=== PATIENT | female | born 1950 | race Caucasian/White ===

== ENCOUNTER → 2020-10-11 | Emergency (ER) | payer MEDICARE, BC ==
[~2020-10-11] VITALS: Ht 162.6 cm; Wt 105.0 kg
[~2020-10-11] MED LIST: NITROGLYCERIN OINT 1 GM PACKET. TP ONE; oxyCODONE/APAP 5/325 1 TAB TABLET PO ONE
--- NOTE | 2020-10-11 19:17 | PHYS DOC ---
Past History Past Medical History: A-Fib, CAD, Diabetes, High Cholesterol, Hypertension, Other Additional Past Medical Histor: 15% KIDNEY FUNCTION (VICTOR M BARBOSA APRN) Past Medical History: Arthritis, CAD, Diabetes, Hypertension, Renal Disease (MANDEEP WREN MD) Past Surgical History: Cholecystectomy, Hysterectomy, Tonsillectomy, Other Additional Past Surgical Histo: HEART CATH, HEART ABLATION, MASECTOMY, FOOT SURGERY (VICTOR M BARBOSA APRN) Past Surgical History: Angioplasty, Other (MANDEEP WREN MD) Alcohol Use: None (VICTOR M BARBOSA APRN) General Adult EDM: Chief Complaint: MECHANICAL FALL HPI: HPI: Patient is a 70-year-old female who presents after a fall off of a step stool yesterday. Patient states that she was hanging a curtain and the next thing she knew she had woke up on the ground. Patient states "I lost about an hour and a half of time ". "I felt dizzy all day and my vision feels not as sharp as normal". "I have had a headache ever since I fell and it is worse when I bend over or get up quickly". Patient is reporting headache, bilateral shoulder pain, neck pain. Patient denies nausea/vomiting. Patient has a history of diabetes, hypertension, TIA. (VICTOR M BARBOSA APRN) Review of Systems: Review of Systems: Constitutional: Denies fever or chills Eyes: Reports vision feels blurry HENT: Denies nasal congestion or sore throat Respiratory: Denies cough or shortness of breath Cardiovascular: Denies chest pain or edema GI: Denies abdominal pain, nausea, vomiting, bloody stools or diarrhea : Denies dysuria Musculoskeletal: Reports neck pain, bilateral shoulder pain Integument: Denies rash Neurologic: Reports headache, denies focal weakness or sensory changes Endocrine: Denies polyuria or polydipsia Lymphatic: Denies swollen glands Psychiatric: Denies depression or anxiety (VICTOR M BARBOSA APRN) Allergies: Allergies: Allergies Coded Allergies Type Severity Reaction Last Updated Verified Penicillins Allergy Unknown Swelling 10/11/20 Yes (VICTOR M BARBOSA APRN) Physical Exam: PE: Constitutional: Well developed, well nourished, no acute distress, non-toxic appearance. [] HENT: Normocephalic, atraumatic, bilateral external ears normal, oropharynx moist, no oral exudates, nose normal. [] Eyes: PERRLA, EOMI, conjunctiva normal, no discharge. [] Neck: Normal range of motion, tenderness Cardiovascular:Heart rate regular rhythm, no murmur [] Lungs & Thorax: Bilateral breath sounds clear to auscultation [] Abdomen: Bowel sounds normal, soft, no tenderness, no masses, no pulsatile masses. [] Skin: Warm, dry, no erythema, no rash. [] Back: No tenderness, no CVA tenderness. [] Extremities: Bilateral shoulder tenderness, ROM intact, no edema. [] Neurologic: Alert and oriented X 3, normal motor function, normal sensory function, no focal deficits noted. [] Psychologic: Affect normal, judgement normal, mood normal. [] (VICTOR M BARBOSA APRN) Current Patient Data: Vital Signs: Vital Signs Date Time Temp Pulse Resp B/P (MAP) Pulse Ox O2 Delivery O2 Flow Rate FiO2 10/11/20 18:46 98.1 71 18 211/104 (139) 98 Room Air (VICTOR M BARBOSA APRN) EKG: EKG: Sinus rhythm. Heart rate 63 bpm. QRS 118. QTc 412 [] (VICTOR M BARBOSA APRN) EKG: My interpretation EKG shows a sinus rhythm at 63 bpm. There is prolonged HI interval at 230 ms. Does have a fascicular block. There is some anterior septal changes. But no obvious changes of a acute STEMI with contralateral changes. Would consider this an abnormal EKG My interpretation EKG #2 at 2214 hrs. shows no acute morphology changes from prior EKG at 1912 hrs. Shows a sinus rhythm at 60 bpm. Slightly prolonged HI interval rate of 234 ms. Does have a left and fascicular block. Anterior septal changes. But no obvious findings of acute STEMI with contralateral changes. (MANDEEP WREN MD) Radiology/Procedures: Radiology/Procedures: []Exam: CT head and cervical spine without contrast INDICATION: Fall TECHNIQUE: Sequential axial images through the head and cervical spine were obtained without the administration of IV contrast. Exposure: One or more of the following in the visualized dose reduction techniques were utilized for this examination: 1. Automated exposure control 2. Adjustment of the MA and/or KV according to patient size 3. Use of iterative of reconstructive technique Comparisons: None FINDINGS: Head: No focal parenchymal lesion or hemorrhage is identified. There is no midline shift or sulcal effacement. No acute vascular territory infarction is identified. Gleason-white distinction is preserved. The ventricular system is within normal limits without compression hyd rocephalus. The basal cisterns are well maintained. The visualized portions of the paranasal sinuses and mastoid air cells are well- pneumatized. No acute fractures. Cervical spine: Vertebral body heights and alignment are well-maintained. Fracture to the cervical spine is not identified. Multilevel spondylotic change in cervical spine. Visualized paraspinal soft tissues are unremarkable. IMPRESSION: 1. No acute intracranial abnormality. 2. Negative CT C-spine for acute traumatic injury. Electronically signed by: Vilma Herbert MD (10/11/2020 7:37 PM) [facility]: XR CHEST 1V CLINICAL HISTORY: Dizziness EXAM DATE/TIME: 10/11/2020 7:11 PM COMPARISON: None FINDINGS: Lines, Tubes, and Devices: None. Cardiomediastinal Silhouette: Heart size at upper limits of normal. Aortic atherosclerotic calcification. Lungs and Pleura: No evidence of focal airspace consolidation or pleural effusion. Pulmonary vasculature unremarkable. Bones and Soft Tissues: Degenerative changes of the thoracic spine. Right axillary surgical clips. IMPRESSION: No evidence of acute cardiopulmonary abnormality. Electronically signed by: Gurvinder Davidson DO (10/11/2020 7:53 PM) [facility] (VICTOR M BARBOSA APRN) Radiology/Procedures: [address] [address] IMAGING REPORT Signed PATIENT: NORBERT MONTOYA ACCOUNT: [id number] : 1950 LOCATION: ER AGE: 70 SEX: F EXAM STATUS: REG ER ORD. PHYSICIAN: IVCTOR M BARBOSA APRN REASON: SHOULDER PAIN. PROCEDURE: SHOULDER BILAT 2+V EXAMINATION: XR SHOULDER 2+ VIEWS CLINICAL HISTORY: Bilateral shoulder pain TECHNIQUE: XR SHOULDER 2+ VIEWS Number of Images/Views: 6 COMPARISON: None FINDINGS: Glenohumeral joint space bilaterally. Moderate bilateral acromioclavicular degenerative changes. No acute fracture. IMPRESSION: No acute osseous abnormality. Moderate degenerative changes bilateral acromioclavicular joints. Electronically signed by: Gurvinder Davidson DO (10/11/2020 7:54 PM) [facility] DICTATED AND SIGNED BY: GURVINDER DAVIDSON DO DATE: 10/11/201952 CC: JULI ARRIETA MD; VICTOR M BARBOSA APRN ~MTH0 0 (MANDEEP WREN MD) Heart Score: C/O Chest Pain: No Risk Factors: Risk Factors: DM, Current or recent (<one month) smoker, HTN, HLP, family history of CAD, obesity. Risk Scores: Score 0 - 3: 2.5% MACE over next 6 weeks - Discharge Home Score 4 - 6: 20.3% MACE over next 6 weeks - Admit for Clinical Observation Score 7 - 10: 72.7% MACE over next 6 weeks - Early Invasive Strategies (VICTOR M BARBOSA APRN) C/O Chest Pain: No HEART Score for Chest Pain: HEART Score for Chest Pain Response (Comments) Value History Moderately Suspicious 1 ECG Nonspecific Repolarizatio 1 Age > 65 2 Risk Factors 1 or 2 Risk Factors 1 Troponin >3 x Normal Limit 2 Total 7 (MANDEEP WREN MD) Course & Med Decision Making: Course & Med Decision Making Pertinent Labs and Imaging studies reviewed. (See chart for details) [] Patient states that she fell off her stepstool last night. Patient's reported headache, dizziness, neck pain, since incident occurred. Patient states "I lost about an hour and a half of time". Patient denies being on blood thinners. CT of head and neck ordered to rule out intracranial bleeding. C- spine ordered to rule out fracture. CT of head and neck were negative for frac ture or bleeding. EKG shows sinus rhythm. Patient's blood pressure was elevated 190s when she arrived. Patient's blood pressure is now 150s. Chest x-ray is negative. Bilateral shoulder x-rays negative for fractures. Informed patient of imaging results. Patient most likely has a concussion which is causing her to have dizziness and a headache. Transfer of patient care to Dr. Wren (VICTOR M BARBOSA APRN) Course & Med Decision Making See earlier charting by Tyra for detail prior shift change., Patient initial syncopal event was 1500 hrs. yesterday with head injury.. Pt. gives hx of marked fatigue all day yesterday after the fall. No hx of chest pain. Pt. Hx, DM, HTN, Elev. Cholesterol, Afib/Flutgter, and CADz. Patient came in tonight because continue headache and scalp hematoma.. Patient does have a history of coronary artery disease.. Last catheterization in 2020 at [facility]-advised she had somewhere between 30 to 40% narrowing of her " maker artery." Did have some collateral circulation. Was advised at that time that she may need bypass surgery. Pt. did not receive stents at that time. Pt. primary is Dr. Arrieta. Pt. could not remember name of Finisher Card Tender at [facility] at this time. Patient has been taking her aspirin daily. Discussed presentation, testing and treatment plan with and Dr. Iglesias. Transfer to [facility]. [id number] Impression: 1. Syncope- 2. Head Contusion-Concussion 3. Anemia 11.7 Hgb 4. Elevated BUN/ Creat 26/2.,8 5. DM = Glucose 272 6. Mild dehydration 7. Hx CADz 8. OH- + Trop. 1.300 (MANDEEP WREN MD) Chevy Disclaimer: Chevy Disclaimer: This electronic medical record was generated, in whole or in part, using a voice recognition dictation system. (VICTOR M BARBOSA APRN) Departure Departure: Referrals: JULI ARRIETA MD (PCP) Attending Signature Attending Signature I have participated in the care of this patient and I have reviewed and agree with all pertinent clinical information above including history, exam, and recommendations. (MANDEEP WREN MD) VICTOR M BARBOSA APRN October 11, 2020 19:17 MANDEEP WREN MD October 11, 2020 21:56
--- NOTE | 2020-10-11 19:39 | RAD ---
Exam: CT head and cervical spine without contrast INDICATION: Fall TECHNIQUE: Sequential axial images through the head and cervical spine were obtained without the admi nistration of IV contrast. Exposure: One or more of the following in the visualized dose reduction techniques were utilized for this examination: 1. Automated exposure control 2. Adjustment of the MA and/or KV according to patient size 3. Use of iterative of reconstructive technique Comparisons: None FINDINGS: Head: No focal parenchymal lesion or hemorrhage is identified. There is no midline shift or sulcal effaceme nt. No acute vascular territory infarction is identified. Gleason-white distinction is preserved. The ventricular system is within normal limits without compression hydrocephalus. The basal cisterns are well maintained. The visualized portions of the paranasal sinuses and mastoid air cells are well-pneumatized. No acute fractures. Cervical spine: Vertebral body heights and alignment are well-maintained. Fracture to the cervical spine is not identified. Multilevel spondylotic change in cervical spine. Visualized paraspinal soft tissues are unremarkable. IMPRESSION: 1. No acute intracranial abnormality. 2. Negative CT C-spine for acute traumatic injury. Electronically signed by: Vilma Herbert MD (10/11/2020 7:37 PM) HUY
--- NOTE | 2020-10-11 19:55 | RAD ---
EXAMINATION: XR CHEST 1V CLINICAL HISTORY: Dizziness EXAM DATE/TIME: 10/11/2020 7:11 PM COMPARISON: None FINDINGS: Lines, Tubes, and Devices: None. Cardiomediastinal Silhouette: Heart size at upper limits of normal. Aortic atherosclerotic calcificat ion. Lungs and Pleura: No evidence of focal airspace consolidation or pleural effusion. Pulmonary vasculat ure unremarkable. Bones and Soft Tissues: Degenerative changes of the thoracic spine. Right axillary surgical clips. IMPRESSION: No evidence of acute cardiopulmonary abnormality. Electronically signed by: Gurvinder Brian DO (10/11/2020 7:53 PM) [place]
[2020-10-11 19:57] LABS: BASO # 0.1 x10^3/uL (0.0-0.2); BASO % 1 % (0-3); EOS # 0.3 x10^3/uL (0.0-0.7); EOS % 4 % (0-3); HEMATOCRIT 35.5 % (36.0-47.0); HEMOGLOBIN 11.7 g/dL (12.0-15.5); LYMPH # 2.9 x10^3/uL (1.0-4.8); LYMPH % 31 % (24-48); MEAN CORPUSCULAR HEMOGLOBIN 31 pg (25-35); MEAN CORPUSCULAR HGB CONC 33 g/dL (31-37); MEAN CORPUSCULAR VOLUME 93 fL (79-100); MONO # 0.7 x10^3/uL (0.0-1.1); MONO % 7 % (0-9); NEUT # 5.3 x10^3uL (1.8-7.7); NEUT % 57 % (31-73); PLATELET COUNT 188 x10^3/uL (140-400); RED BLOOD COUNT 3.81 x10^6/uL (3.50-5.40); RED CELL DISTRIBUTION WIDTH 14.3 % (11.5-14.5); WHITE BLOOD COUNT 9.3 x10^3/uL (4.0-11.0)
--- NOTE | 2020-10-11 19:57 | RAD ---
EXAMINATION: XR SHOULDER 2+ VIEWS CLINICAL HISTORY: Bilateral shoulder pain TECHNIQUE: XR SHOULDER 2+ VIEWS Number of Images/Views: 6 COMPARISON: None FINDINGS: Glenohumeral joint space bilaterally. Moderate bilateral acromioclavicular degenerative changes. No a cute fracture. IMPRESSION: No acute osseous abnormality. Moderate degenerative changes bilateral acromioclavicular joints. Electronically signed by: Gurvinder Brian DO (10/11/2020 7:54 PM) [facility]INE
[2020-10-11 20:06] LABS: BILIRUBIN,URINE NEG (NEG); CLARITY,URINE CLEAR; COLOR,URINE YELLOW; GLUCOSE,URINE NEG (NEG)
[2020-10-11 20:07] LABS: BACTERIA,URINE 0 /HPF (0-FEW); NITRITE,URINE NEG (NEG); RBC,URINE OCC /HPF (0-2); SQUAMOUS EPITHELIAL CELL,UR OCC /LPF; UROBILINOGEN,URINE 0.2 mg/dL (0.2 mg/dL); WBC,URINE 0 /HPF (0-4)
[2020-10-11 20:10] LABS: CALCIUM 7.7 mg/dL (8.5-10.1); CREATININE 2.8 mg/dL (0.6-1.0); GFR 16.7; POTASSIUM 3.7 mmol/L (3.5-5.1)
[2020-10-11 20:16] LABS: ALBUMIN 3.5 g/dL (3.4-5.0); ALBUMIN/GLOBULIN RATIO 1.1 (1.0-1.7); TOTAL BILIRUBIN 0.2 mg/dL (0.2-1.0); TOTAL PROTEIN 6.6 g/dL (6.4-8.2)
--- NOTE | 2020-10-11 21:41 | EKG ---
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
--- NOTE | 2020-10-11 22:21 | EKG ---
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
[2020-10-12] VITALS: BP 169/70
== END ==
LOC: ER 18:29
DX: S06.0X9A Concussion with loss of consciousness of unspecified duration, initial encounter (principal); D64.9 Anemia, unspecified; R55 Syncope and collapse; R79.89 Other specified abnormal findings of blood chemistry; E11.9 Type 2 diabetes mellitus without complications; E86.0 Dehydration; I21.9 Acute myocardial infarction, unspecified; M25.511 Pain in right shoulder; M25.512 Pain in left shoulder; I25.10 Atherosclerotic heart disease of native coronary artery without angina pectoris; I48.91 Unspecified atrial fibrillation; E78.00 Pure hypercholesterolemia, unspecified; I10 Essential (primary) hypertension; Z98.61 Coronary angioplasty status; Z88.0 Allergy status to penicillin; W17.89XA Other fall from one level to another, initial encounter; Y93.89 Activity, other specified; Y92.89 Other specified places as the place of occurrence of the external cause; Y99.8 Other external cause status
CPT/HCPCS: 36415; 70450; 71045; 72125; 73030; 80053; 81001; 84484; 85025; 93005; 99285-25